=== PATIENT | male | born 1975 | race Caucasian/White ===

== ENCOUNTER → 2016-09-20 | Outpatient (CLI) | payer OTHER | END | disposition home or self-care (01) | LOC: PCVCIMAG 13:00 | PROVIDERS: ATTEND Internal Medicine Cardiovascular Disease | DX: I42.8 Other cardiomyopathies (principal) | CPT/HCPCS: 93306 ==

== ENCOUNTER → 2017-08-26 | Outpatient (CLI) | payer OTHER ==
--- NOTE | 2017-08-26 16:59 | PCVCIMAG ---
APPROVED REPORT Study performed: 08/26/2017 15:51:11 EXAM: Comprehensive 2D, Doppler, and color-flow Echocardiogram Patient Location: Echo lab Status: routine BSA: 1.91 HR: 72 bpmBP: 122/72 mmHg Rhythm: NSR Other Information Study Quality: Adequate Indications Idiopathic Cardiomyopathy 2D Dimensions LVEF(%): 34.83 (>50%) IVSd: 6.64 (7-11mm) LVDd: 54.39 mm PWd: 8.11 (7-11mm) LVDs: 45.24 (25-40mm) Left Atrium: 37.84 (27-40mm) Aortic Root: 24.66 mm LV Single Plane 4CH: 33.27 % LV Single Plane 2CH: 41.01 %García's LVEF: 37.14 % Volumes Left Atrial Volume (Systole) Single Plane 4CH: 45.12 mLSingle Plane 2CH: 58.57 mL LA ESV Index: 28.00 mL/m2 Aortic Valve AoV Peak Ricardo.: 1.23 m/s AO Peak Gr.: 6.05 mmHgLVOT Max P.40 mmHg LVOT Max V: 0.78 m/s Mitral Valve E/A Ratio: 0.8 MV Decel. Time: 300.80 ms MV E Max Ricardo.: 0.64 m/s MV A Ricardo.: 0.84 m/s MV PHT: 87.23 ms IVRT: 114.19 ms Pulmonary Vein P Vein S: 0.27 m/sP Vein A: 0.34 m/s P Vein D: 0.38 m/sP Vein A Dur.: 141.9 msec P Vein S/D Ratio: 0.71 Tricuspid Valve TR Peak Ricardo.: 2.15 m/s TR Peak Gr.: 18.47 mmHg Left Ventricle The left ventricle is normal size. There is normal LV segmental wall motion. There is normal left ventricular wall thickness. Left ventricular systolic function is moderately decreased. LVEF is 35-40%. Grade I - abnormal relaxation pattern. Right Ventricle The right ventricle is normal size. The right ventricular systolic function is normal. Atria The left atrium size is normal. The right atrium size is normal. Aortic Valve The aortic valve is normal in structure. No aortic regurgitation is present. There is no aortic valvular stenosis. Mitral Valve The mitral valve is normal in structure. Trace mitral regurgitation. No evidence of mitral valve stenosis. Tricuspid Valve The tricuspid valve is normal in structure. Trace tricuspid regurgitation with PAP of 25 mmHg. Pulmonic Valve The pulmonary valve is normal in structure. There is no pulmonic valvular regurgitation. Great Vessels The aortic root is normal in size. IVC is normal in size and collapses with >50% inspiration Pericardium There is no pericardial effusion. <Conclusion> The left ventricle is normal size. Left ventricular systolic function is moderately decreased. LVEF is 35-40%. Grade I - abnormal relaxation pattern. The right ventricle is normal size. The left atrium size is normal. The aortic valve is normal in structure. Trace mitral regurgitation. Trace tricuspid regurgitation with PAP of 25 mmHg. There is no pericardial effusion.
== END | disposition home or self-care (01) ==
LOC: PCVCIMAG 15:43
PROVIDERS: ATTEND Internal Medicine Cardiovascular Disease
DX: I42.9 Cardiomyopathy, unspecified (principal); I10 Essential (primary) hypertension; E78.5 Hyperlipidemia, unspecified
CPT/HCPCS: 93306